=== PATIENT | male | born 1980 | race Caucasian/White ===

== ENCOUNTER 2023-10-15 12:28 | Emergency (ER) | payer MEDICAID, SELFPAY ==
[2023-10-15 12:29] VITALS: BP 116/78; PULSE 73; RESP 18; TEMP 35.8; O2SAT 100; BMI 31.7
[2023-10-15 12:30] VITALS: BP 120/82; PULSE 66; RESP 20; O2SAT 99
[2023-10-15] MEDS: 0.9% Normal Saline (1000mL) 1,000 ML 1000 ML IV (12:38)
[2023-10-15] MEDS: HYDROmorphone 1 MG/ML Syringe 0.5 MG IV (12:39)
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
--- NOTE | 2023-10-15 12:45 | RAD_ITS ---
INDICATION: injury EXAMINATION/TECHNIQUE: X-RAY - RIGHT XR Tibia/Fibula 2 Views 4 VIEWS COMPARISON: No relevant prior comparison study available FINDINGS: SOFT TISSUES: The soft tissues are obscured by overlying artifacts from patient''s clothing. No significant soft tissue swelling. BONES/JOINTS: No acute fracture is identified. The distal fibula is suboptimally seen.. Normal alignment. Preservation of the joint space.. No sclerotic or destructive changes observed. RAD/Tibia & Fibula 2 Views IMPRESSION: No evidence of acute fracture. Electronically Signed: Renato Nieves MD at 13:09 EDT ,
[2023-10-15 12:50] LABS: Absolute Lymphocyte Count 2.44 X10^3/uL (0.83-4.51); Absolute Neutrophil Count 2.7 X10^3/uL (2.0-7.7); Basophil# 0.04 X10^3/uL; Basophil% 0.7 % (0-1); Eosinophils% 3.4 % (0-5); Hematocrit 41.1 % (40-54); Hemoglobin 13.7 g/dL (13.0-16.5); Lymphocyte # 2.44 X10^3/ul (0.83-4.51); Lymphocyte % 41.7 % (19-41); Mean Corp Hgb Conc 33.3 g/dL (32-36); Mean Corpuscular Hgb 28.2 pg (27.0-32.0); Mean Corpuscular Volume 84.6 fL (80-94); Mean Platelet Vol. 8.8 fl (6.2-12.0); Monocyte# 0.46 X10^3/uL; Monocyte% 7.9 % (0-10); NRBC Flagged by Analyzer 0 % (0-5); Neutrophil # 2.69 X10^3/uL (2.7-7.7); Platelet Count 309 K/mm3 (150-450); RBC Distribution Width CV 12.3 % (11.6-14.6); RBC Distribution Width SD 37.9 fl (35.1-43.9); Red Blood Count 4.86 M/mm3 (4.6-6.2); White Blood Count 5.9 K/mm3 (4.4-11.0)
[2023-10-15 12:59] LABS: International Normalized Ratio 0.9; Prothrombin Time (Protime)PT. 12.2 SECONDS (11.7-14.9)
[2023-10-15 13:00] LABS: Partial Thromboplast Time 25.5 Seconds (24.1-36.2)
[2023-10-15 13:05] LABS: Anion Gap 7 (5-15); BUN 14 mg/dL (7-18); Calcium,Total 9.6 mg/dL (8.5-10.1); Chloride 107 mmol/L (98-107); Creatinine, Serum 1.17 mg/dL (0.70-1.30); EST Glomerular Filtration Rate 72 mL/min (>60); Est Glom Filt Rate - Afr Amer 88 mL/min (>60); Glucose 128 mg/dL (74-106); Potassium 3.6 mmol/L (3.5-5.1); Sodium Level 139 mmol/L (136-145)
[2023-10-15 13:23] LABS: CPK Total, Creatine Kinase 135 U/L (39-308)
[2023-10-15 13:30] VITALS: BP 119/70; PULSE 65; RESP 18; O2SAT 98
[2023-10-15] MEDS: HYDROmorphone 1 MG/ML Syringe IV (13:33)
[2023-10-15 14:00] VITALS: BP 125/88; PULSE 48; RESP 16; O2SAT 98
[2023-10-15 14:47] VITALS: BP 124/82; PULSE 48; RESP 16; TEMP 36.8; O2SAT 98
== END 2023-10-15 15:03 | disposition short-term general hospital (02) ==
PROVIDERS: Emergency Provider Emergency Medicine; PCP Family Medicine; Visit Provider Emergency Medicine
DX: S87.81XA Crushing injury of right lower leg, initial encounter (principal); F41.9 Anxiety disorder, unspecified; X58.XXXA Exposure to other specified factors, initial encounter
CPT/HCPCS: 73590; 80048; 82550; 85025; 85610; 85730; 96374; 96376; 99285; A4216